=== PATIENT | male | born 1960 | race Caucasian/White ===

== ENCOUNTER → 2019-12-06 | Outpatient (CLI) | payer MEDICARE ==
--- NOTE | 2019-12-06 13:12 | RAD ---
EXAM DESCRIPTION: Foot,Right 3 Views CLINICAL HISTORY: 59 years, Male, PAIN COMPARISON: None TECHNIQUE: AP, lateral, and oblique views of the right foot FINDINGS: Bones appear osteopenic. 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 Degenerative narrowing of the joints of toes. No midfoot malalignment. Lateral view shows intact talus and calcaneus. Mild dorsal calcaneal spurring. Deformity of the distal fibula consistent with old healed fracture. Lateral view suggests hammertoes. Mild degenerative spurring of the dorsal midfoot. There is no other bone, joint, or soft tissue abnormality observed. There is no radiopaque foreign body. IMPRESSION: Degenerative changes as described. Electronically signed by: Leno Hemphill MD 12/06/2019 1:11 PM CDT
== END ==
LOC: RAD 08:00
PROVIDERS: ATTEND Orthopaedic Surgery
DX: M19.071 Primary osteoarthritis, right ankle and foot (principal)

== ENCOUNTER → 2019-12-28 | Outpatient (CLI) | payer MEDICARE ==
--- NOTE | 2019-12-28 13:31 | RAD ---
EXAM DESCRIPTION: Chest,2 Views x-ray CLINICAL HISTORY: 59 years Male, PRE-SURGERY EVALUATION COMPARISON: None. IMPRESSION: The heart is enlarged, with mild central pulmonary vascular congestion. Mild perihilar interstitial thickening which may be secondary to CHF with interstitial edema, atelectasis/fibrosis, or an atypical infectious/inflammatory process. Short interval follow-up recommended. No pleural effusion or pneumothorax. No acute osseous abnormality. Partially imaged lower cervical ACDF hardware. Electronically signed by: Tad Ramirez MD 12/28/2019 1:29 PM CDT
== END ==
LOC: LAB.O 11:06
PROVIDERS: ATTEND Orthopaedic Surgery
DX: Z01.818 Encounter for other preprocedural examination (principal); I51.7 Cardiomegaly; R91.8 Other nonspecific abnormal finding of lung field; R09.89 Other specified symptoms and signs involving the circulatory and respiratory systems

== ENCOUNTER 2020-03-04 05:35 | Day surgery (SDC) | payer MEDICARE ==
[2020-03-04] MEDS ORDERED: PROPOFOL 200 MG/20 ML VIAL IV ONE ×2 (05:36→11:45)
[2020-03-04] MEDS ORDERED: MAGNESIUM SULFATE INJ 1 GM/2 ML VIAL IVPB ONE (05:36)
[2020-03-04] MEDS ORDERED: ceFAZolin SODIUM 1 GM VIAL ONE (06:28)
[2020-03-04] MEDS ORDERED: LACTATED RINGERS 1,000 ML ONE (06:28)
[2020-03-04] MEDS ORDERED: SODIUM CHL 0.9% 100ML MINI-BAG 100 ML IVPB ONE (06:28)
[2020-03-04] MEDS ORDERED: BUPIVACAINE 0.5% 30 ML VIAL INJ ONE (06:59)
[2020-03-04] MEDS ORDERED: CYCLOBENZAPRINE HCL 10 MG TAB PO PRN (09:36)
[2020-03-04] MEDS ORDERED: ALUMINUM & MAGNESIUM HYDROXIDE 30 ML UD PO PRN (09:36)
[2020-03-04] MEDS ORDERED: PROMETHAZINE HCL INJ 25 MG in SODIUM CHLORIDE 0.9% 50ML 50 ML IVPB PRN (09:36)
[2020-03-04] MEDS ORDERED: SODIUM CHLORIDE 0.9% (FLUSH) 10 ML SYG IV PRN (09:36)
[2020-03-04] MEDS ORDERED: HYDROcodone 5MG/APAP 325MG 1 EA TAB PO PRN (09:36)
[2020-03-04] MEDS ORDERED: ONDANSETRON INJ 4 MG/2 ML VIAL IV PRN (09:36)
[2020-03-04] MEDS ORDERED: MORPHINE SULFATE INJ 10 MG/ML VIAL IV PRN (09:36)
[2020-03-04] MEDS ORDERED: DEX 5% W/NACL 0.45% 1000ML 1,000 ML IVS PRN (09:36)
[2020-03-04] MEDS ORDERED: NALOXONE HCL INJ 0.4 MG/ML VIAL IV PRN (09:36)
[2020-03-04] MEDS ORDERED: MAGNESIUM HYDROXIDE 30 ML UD PO PRN (09:36)
[2020-03-04] MEDS ORDERED: TRANEXAMIC ACID INJ 1,000 MG in SODIUM CHLORIDE 0.9% 100ML 100 ML IVPB ONE (09:36)
[2020-03-04] MEDS ORDERED: BISACODYL SUPPOSITORY 10 MG PR PRN (09:36)
[2020-03-04] MEDS ORDERED: HYDROcodone 10MG/APAP 325MG 1 EA TAB PO PRN (09:36)
[2020-03-04] MEDS ORDERED: traMADol HCL 50 MG TAB PO PRN (09:36)
[2020-03-04] MEDS ORDERED: PROMETHAZINE HCL INJ 12.5 MG in SODIUM CHLORIDE 0.9% 50ML 50 ML IVPB PRN (09:36)
[2020-03-04] MEDS ORDERED: ACETAMINOPHEN 500 MG TAB PO PRN (09:36)
[2020-03-04] MEDS ORDERED: MORPHINE SULFATE INJ 10 MG/ML VIAL IM PRN (09:36)
[2020-03-04] MEDS ORDERED: ZOLPIDEM TARTRATE 5 MG TAB PO PRN (09:36)
[2020-03-04] MEDS ORDERED: BENZOCAINE-MENTH LOZ (CEPACOL) 1 EA LOZ MT PRN (09:36)
[2020-03-04] MEDS ORDERED: TEMAZEPAM 15 MG CAP PO PRN (09:36)
[2020-03-04] MEDS ORDERED: BUPIVACAINE LIPOSOME 13.3 MG/ML VIAL INJ ONE (09:38)
[2020-03-04] MEDS ORDERED: IV SET AND CAP CHANGE INJ INJ SCH (10:00)
[2020-03-04] MEDS ORDERED: MORPHINE PCA 1 MG/ML 100 ML BAG IVPB SCH (10:00)
[2020-03-04] MEDS ORDERED: fentaNYL CITRATE INJ 50 MCG/ML AMP ONE (10:05)
[2020-03-04] MEDS ORDERED: KETAMINE HCL 100 MG/ML VIAL ONE (10:05)
[2020-03-04] MEDS ORDERED: DEXMEDETOMIDINE HCL 200 MCG/2 ML INJ IV ONE (10:05)
[2020-03-04] MEDS ORDERED: MIDAZOLAM INJ 5 MG/5 ML VIAL ONE (10:05)
[2020-03-04] MEDS ORDERED: FAMOTIDINE 10 MG/ML ML IV ONE (10:06)
[2020-03-04] MEDS ORDERED: SODIUM CHLORIDE 0.9% 250ML 250 ML ONE (10:25)
[2020-03-04] MEDS: VANCOMYCIN HCL INJ 1,000 MG VIAL IVPB ONE ×2 (11:00→13:20)
[2020-03-04] MEDS: ceFAZolin SODIUM 1 GM VIAL ONE ×2 (11:00→13:20)
[2020-03-04] MEDS ORDERED: NALOXONE HCL INJ 0.4 MG/ML VIAL ONE (12:48)
[2020-03-04] MEDS ORDERED: FLUMAZENIL 0.1 MG/ML VIAL ONE (12:48)
[2020-03-04] MEDS ORDERED: hydrALAZINE HCl 20 MG/ML VIAL ONE (13:19)
[2020-03-04 14:20] VITALS: O2SAT 95
--- NOTE | 2020-03-04 14:45 | RAD ---
EXAM DESCRIPTION: Foot,Right 2 Views CLINICAL HISTORY: 59 years, Male, post op COMPARISON: December 06, 2019 TECHNIQUE: Two views of the right foot FINDINGS: Two views right foot show fixation of the great toe with a dorsal plate extending from the first metatarsal distally to the proximal shaft of the proximal phalanx. A single threaded pin extends through the distal phalanx into the distal aspect of the proximal phalanx. Indistinct bone graft material appears to lie at the medial aspect of the first MTP joint. Alignment is essentially anatomic with less hallux valgus of the great toe than seen in December 06 2019 IMPRESSION: Postoperative right foot with fixation of the great toe at the MTP and interphalangeal joint in essentially anatomic alignment with less hallux valgus. Electronically signed by: Brandon Mckeon MD 03/04/2020 2:43 PM CDT
[2020-03-04 15:52] VITALS: BP 104/59; TEMP 98.2
[2020-03-04] MEDS ORDERED: ceFAZolin SODIUM 2 GM in SODIUM CHL 0.9% 50ML MIN-BAG+ 50 ML IVPB SCH (16:00)
[2020-03-04] MEDS ORDERED: CELECOXIB 100 MG CAP PO SCH (17:00)
--- NOTE | 2020-03-04 17:01 | RAD ---
EXAM DESCRIPTION: Fluoroscopy Up to 1Hr CLINICAL HISTORY: BUNIONECTOMY, TOE FUSION-RIGHT FOOT COMPARISON: None. TECHNIQUE: Fluoroscopy time is less than our, one spot film. FINDINGS: A lateral film is submitted and demonstrates fusion of the interphalangeal and metatarsal phalangeal joints of the first digit IMPRESSION: Views of the first digit of the right foot is demonstrated Electronically signed by: Len Mao MD 03/04/2020 5:00 PM CDT
[2020-03-04] MEDS ORDERED: VANCOMYCIN HCL INJ 1,000 MG in SODIUM CHLORIDE 0.9% 250ML 250 ML IVPB SCH (18:00)
[2020-03-04] MEDS ORDERED: DOCUSATE CALCIUM 240 MG CAP PO SCH (21:00)
[2020-03-04] MEDS ORDERED: ENOXAPARIN SODIUM 30 MG/0.3 ML SYG SUBCU SCH (23:00)
[2020-03-05] MEDS ORDERED: MAGNESIUM OXIDE 400 MG TAB PO SCH (09:00)
[2020-03-06] MEDS ORDERED: SODIUM CHLORIDE 0.9% (FLUSH) 10 ML SYG IV SCH (09:00)
--- NOTE | 2020-03-07 08:49 | OP ---
DATE OF PROCEDURE: 03/04/20 PREOPERATIVE DIAGNOSIS: 1. Hammertoe deformity of the second toe. 2. Bunion deformity of the great toe. 3. 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 POSTOPERATIVE DIAGNOSIS: 1. Hammertoe deformity of the second toe. 2. Bunion deformity of the great toe. 3. 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 PROCEDURE: 1. Fusion of the MTP joint. 2. Fusion of the IP joint. SURGEON: Carlos Limon MD PHARMACOLOGY PROFESSOR: Gian Javed CST, SA-C ANESTHESIA: General anesthesia COMPLICATIONS: No complications experienced during the procedure, however, the patient did have some instability as noted by the anesthesia record and, therefore, the procedure had to be abandoned after fusion of the great toe and IP joint. INDICATION: Mr. Napier has a history of deformity of the toes on the affected foot. He and I have talked about options for correction of this and he has requested that we proceed with the aforementioned procedure. After discussing the risks, benefits and alternatives to that, he has given informed consent for that. PROCEDURE: The patient was brought to the Operating Room and placed in supine position. General anesthesia was induced. The patient's leg was sterilely prepped and draped. After prepping and draping, an incision was made over the dorsal aspect of the metatarsal extending all the way distal to the distal phalanx. The soft tissues were stripped off the metatarsal and distally. The metatarsal head was identified and a cone-shaped reamer was used to shave the end of the metatarsal. Attention was focused on the proximal phalangeal articular surface and cartilage was debrided. A plate was placed across the fracture site and attempts made to bend it as anatomic as possible. The IP joint was then exposed and the articular surfaces were debrided. A screw was passed from distal to proximal to hold the IP joint in approximation. The reduction was confirmed on fluoroscopic imaging. Once that had been performed, it was noted that the patient began to have some profuse sweating during surgery although all other vital signs were stable. At the request of the anesthesia provider, the procedure was then abandoned. The wound was irrigated and closed with Nylon suture. Sterile dressings were placed. The patient was awoken from anesthesia and taken to Recovery. POSTOPERATIVE PLAN: He will be weightbearing only on the heel of the foot and he will be in a walking boot. He will followup with us in two days. We will discuss further plans for completion of the procedure after healing of this. I have spoken with Mahendra on multiple occasions about his nicotine use and his use of Chantix. I did discuss this also with his mother who has permission to get all of his medical informed. He again reiterated that he was making every attempt to minimize tobacco use. #[id number] [facility]
[2020-03-07] MEDS ORDERED: MAGNESIUM HYDROXIDE 30 ML UD PO ONE (21:00)
[2020-03-07] MEDS ORDERED: BISACODYL SUPPOSITORY 10 MG PR ONE (21:00)
== END 2020-03-04 15:40 | disposition home or self-care (01) ==
LOC: AMB 05:35
PROVIDERS: ATTEND Orthopaedic Surgery
DX: M20.41 Other hammer toe(s) (acquired), right foot (principal); M21.611 Bunion of right foot; I10 Essential (primary) hypertension; E11.9 Type 2 diabetes mellitus without complications; K21.9 Gastro-esophageal reflux disease without esophagitis; E66.9 Obesity, unspecified; M19.071 Primary osteoarthritis, right ankle and foot; F17.220 Nicotine dependence, chewing tobacco, uncomplicated; Z68.35 Body mass index [BMI] 35.0-35.9, adult; Z79.899 Other long term (current) drug therapy; Z88.8 Allergy status to other drugs, medicaments and biological substances
CPT/HCPCS: 01480; 28285; 36415; 36416; 73620; 76000; 80048; 80307; 82948; 85025; C1713; C9359; J0360; J0690; J2250; J2310; J3010; J3370; J3475; J3490; J7050; J7120

== ENCOUNTER → 2020-04-23 | Outpatient (CLI) | payer MEDICARE ==
--- NOTE | 2020-04-23 13:37 | RAD ---
EXAM DESCRIPTION: Foot,Right 3 Views CLINICAL HISTORY: 59 years, Male, BUNION COMPARISON: March 04, 2020 TECHNIQUE: AP, lateral, and oblique views of the right foot IMPRESSION: Postoperative changes status post fusion first MTP and first IP joints. Solid fusion first MTP. No effusion first IP joint. Marginal hypertrophic changes quite prominent first MTP. Extensive soft tissue swelling of the medial forefoot/first digit. No detected bone destruction. Electronically signed by: Charles Ma MD 04/23/2020 1:35 PM [facility]
== END ==
LOC: RAD 08:32
PROVIDERS: ATTEND Orthopaedic Surgery
DX: M21.611 Bunion of right foot (principal); M89.371 Hypertrophy of bone, right ankle and foot; Z98.890 Other specified postprocedural states

== ENCOUNTER → 2020-05-15 | Outpatient (CLI) | payer MEDICARE ==
--- NOTE | 2020-05-15 13:55 | RAD ---
EXAM DESCRIPTION: Foot,Right 3 Views CLINICAL HISTORY: 59 years, Male, bunion of right foot COMPARISON: April 23, 2020 TECHNIQUE: Three views right foot FINDINGS: Three views right foot demonstrate modest osteopenia. A threaded pin extends through the distal phalanx of the great toe slightly into the proximal phalanx with modest lucency surrounding the screw tip. Prior osteotomy of the proximal phalanx distally noted with no significant bony union evident at the interphalangeal joint. The MTP joint demonstrates plate and screw fixation along the dorsal surface with bony fusion evident at this level. Soft tissue swelling persists. Alignment is unchanged from prior studies. No significant abnormality of the other toes noted with claw toe deformity of toes two through five. IMPRESSION: 1. Hypertrophic change and fixation and bony fusion of the MTP joint of the great toe, unchanged. 2. Pin fixation of the interphalangeal joint of the great toe with lucency surrounding the pin tip in the proximal phalanx distally without evidence of bony fusion. Alignment near-anatomic of bony union not evident. Electronically signed by: Brandon Mckeon MD 05/15/2020 1:53 PM [facility]
== END ==
LOC: RAD 09:04
PROVIDERS: ATTEND Orthopaedic Surgery
DX: M21.611 Bunion of right foot (principal); M89.371 Hypertrophy of bone, right ankle and foot; Z98.890 Other specified postprocedural states

== ENCOUNTER → 2020-06-16 | Outpatient (CLI) | payer MEDICARE ==
--- NOTE | 2020-06-16 12:12 | RAD ---
EXAM DESCRIPTION: Foot,Right 3 Views CLINICAL HISTORY: BUNION RT FOOT COMPARISON: 15 May 2020 TECHNIQUE: 3 views right FINDINGS: Exam demonstrates evidence of arthrodesis of the first digit of the right foot alignment remains unchanged the prior exam. The exam does reveal some lucency about the threaded pin through the inner phalangeal joint in the proximal phalanx. This was present previously and remains unchanged. No new injury is detected. Mild distal interphalangeal joint arthritis is observed. Small plantar and Achilles enthesophytes are observed. Mild intertarsal arthritis is seen. IMPRESSION: Arthrodesis of the first digit is observed. There is been no significant interval change from the previous exam. There is persistent lucency about a pin traversing the inner phalangeal joint in the proximal phalanx Electronically signed by: Len Mao MD 06/16/2020 12:10 PM [facility]
== END ==
LOC: RAD 09:54
PROVIDERS: ATTEND Orthopaedic Surgery
DX: M21.611 Bunion of right foot (principal); Z98.1 Arthrodesis status

== ENCOUNTER 2020-06-18 05:50 | Day surgery (SDC) | payer MEDICARE ==
[2020-06-18] MEDS ORDERED: LACTATED RINGERS 1,000 ML ONE (06:00)
[2020-06-18] MEDS ORDERED: SODIUM CHL 0.9% 100ML MINI-BAG 100 ML IVPB ONE (06:00)
[2020-06-18] MEDS ORDERED: ceFAZolin SODIUM 1 GM VIAL ONE ×2 (06:00→10:13)
[2020-06-18] MEDS ORDERED: PROPOFOL 200 MG/20 ML VIAL IV ONE (07:00)
[2020-06-18] MEDS ORDERED: LIDOCAINE 1% 10 ML VIAL INJ ONE (07:00)
[2020-06-18] MEDS ORDERED: MIDAZOLAM INJ 5 MG/5 ML VIAL ONE (10:05)
[2020-06-18] MEDS ORDERED: BUPIVACAINE 0.5% 30 ML VIAL INJ ONE (10:06)
[2020-06-18] MEDS ORDERED: VANCOMYCIN HCL INJ 1,000 MG VIAL IVPB ONE (10:14)
[2020-06-18 12:07] VITALS: BP 137/80; TEMP 97.5; O2SAT 96
--- NOTE | 2020-06-26 07:56 | OP ---
DATE OF PROCEDURE: 06/18/20 PREOPERATIVE DIAGNOSIS: 1. 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 2. Diabetes. POSTOPERATIVE DIAGNOSIS: 1. 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 2. Diabetes. PROCEDURE: 1. Amputation of right fifth digit. SURGEON: Carlos Limon MD DOCTORATE OF CHIROPRACTIC: Gian Javed CST, SA-C ANESTHESIA: Local with sedation. COMPLICATIONS: None. FINDINGS: Chronic ulceration of the fifth digit on the medial aspect. INDICATION: Mahendra is a patient that has undergone multiple procedures and unfortunately has developed a pressure ulcer on the fourth/fifth interspace on the medial aspect of the fifth digit. We attempted multiple interventions and wound care, however, we were unable to get this to heal. Mahendra and I discussed the options available to him and after discussing the risks, benefits and alternatives to operative therapy, he gave informed consent for that. PROCEDURE: The patient was brought to the Operating Room and placed in supine position. Sedation was administered and local anesthetic was injected into the operative area. Following injection of local anesthetic, an incision was made circumferentially around the digit proximal to the pressure ulcer. Following that, the dissection was carried down to the proximal phalanx which was transected. The wound edges had good bleeding, healthy tissue. Following examination and debridement, the wound was thoroughly irrigated and closed with a combination of subcuticular stitches and Nylon in the skin. Sterile dressings were placed. The patient was awoken from anesthesia and taken to Recovery. POSTOPERATIVE PLAN: He will be weightbearing as tolerated, but he will be using a boot for a for this time. #[id number] [facility]
== END 2020-06-18 12:05 | disposition home or self-care (01) ==
LOC: AMB 05:50
PROVIDERS: ATTEND Orthopaedic Surgery
DX: E11.621 Type 2 diabetes mellitus with foot ulcer (principal); L97.519 Non-pressure chronic ulcer of other part of right foot with unspecified severity; M86.9 Osteomyelitis, unspecified; D64.9 Anemia, unspecified; K21.9 Gastro-esophageal reflux disease without esophagitis; I10 Essential (primary) hypertension; M19.071 Primary osteoarthritis, right ankle and foot; I45.10 Unspecified right bundle-branch block; Z88.8 Allergy status to other drugs, medicaments and biological substances; Z79.4 Long term (current) use of insulin; Z79.899 Other long term (current) drug therapy
CPT/HCPCS: 01480; 28820; 36415; 36416; 80048; 80307; 82948; 85025; 87070; 88307; 88311; J0690; J2250; J3370; J3490; J7050; J7120